=== PATIENT | female | born 1995 | race Caucasian/White ===

== ENCOUNTER → 2017-10-21 | Outpatient (CLI) | payer OTHER, BC ==
[~2017-10-21] MED LIST: ETON68IM SQ; HYDR-385 PO; MECL25TA9 PO; NORE1CAP PO
== END ==
LOC: LAB 06:54
PROVIDERS: ATTEND Nurse Practitioner Family
DX: E55.9 Vitamin D deficiency, unspecified (principal)
CPT/HCPCS: 36415; 82306

== ENCOUNTER 2018-01-04 09:33 | Outpatient (RCR) | payer OTHER, BC ==
[~2018-01-04 09:33] MED LIST changes: +METH4TAB66 PO
[2018-01-07] MEDS ORDERED: GADOBENATE 529MG/1ML 15ML VIAL IVP ONE (13:13)
--- NOTE | 2018-01-07 14:48 | RADIOLOGY IMAGING REPORT ---
FACILITY: [facility] - [place] PATIENT NAME: Pilar Bustillos : 1995 MR: [id number] V: [id number] EXAM DATE: ORDERING PHYSICIAN: ECHO IZAGUIRRE TECHNOLOGIST: Location: [facility] - [place] Patient: Pilar Bustillos : 1995 Visit/Account:[id number] Date of Sevice: 01/07/2018 Examination: MR brain without and with contrast History: Numbness in arms and legs Comparison: 08/16/2017 Technique: Multiplane MR imaging was performed through the brain without and with contrast. 11 cc IV multihance was administered. Findings: Diffusion: None Ventricles: Normal Midline shift: None Extraxial fluid: None Midline craniocervical structures: Unchanged benign pineal gland cyst measures 7 mm AP by 4 mm cranio caudad by 5 mm transverse. Parenchyma: Normal Enhancement: No pathologic enhancement Vascular flow voids: Normal Orbits and paranasal sinuses: Normal Impression: 1. 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 2. Otherwise unremarkable and normal brain MR without and with contrast. Report Dictated By: Jason Avila MD at 01/07/2018 2:37 PM Report E-Signed By: Jason Avila MD at 01/07/2018 2:44 PM WSN:[id number]
== END 2018-01-07 18:00 | disposition home or self-care (01) ==
LOC: MRI 09:33
PROVIDERS: ATTEND Specialist
DX: E34.8 Other specified endocrine disorders (principal)
CPT/HCPCS: 36415; 70553; 82607; A9577

== ENCOUNTER → 2018-02-07 | Outpatient (CLI) | payer OTHER, BC | LOC: LAB 16:09 | PROVIDERS: ATTEND Nurse Practitioner Family | DX: E83.52 Hypercalcemia (principal) | CPT/HCPCS: 36415; 82040; 82247; 82306; 82310; 82374; 82435; 82565; 82947; 84075; 84132; 84155; 84295; 84450; 84460; 84520 ==

== ENCOUNTER → 2018-05-03 | Outpatient (CLI) | payer OTHER, BC ==
[~2018-05-03] MED LIST changes: +CHOL500050 PO
[2018-05-03 15:23] LABS: PLATELET COUNT, AUTOMATED 373 K/uL (150-450)
== END ==
LOC: LAB 15:03
PROVIDERS: ATTEND Nurse Practitioner Primary Care
DX: R10.31 Right lower quadrant pain (principal)
CPT/HCPCS: 36415; 81001; 82040; 82247; 82310; 82374; 82435; 82565; 82947; 84075; 84132; 84155; 84295; 84450; 84460; 84520; 85025

== ENCOUNTER → 2018-05-10 | Outpatient (CLI) | payer OTHER, BC ==
--- NOTE | 2018-05-10 15:18 | RADIOLOGY IMAGING REPORT ---
FACILITY: [facility] PATIENT NAME: Pilar Bustillos : 1995 MR: [id number] V: [id number] EXAM DATE: ORDERING PHYSICIAN: CATRACHITO FISHER TECHNOLOGIST: Location: [facility] [place] Patient: Pilar Bustillos : 1995 Visit/Account:[id number] Date of Sevice: 05/10/2018 PELVIC HISTORY: RLQ abdominal pain / R pelvic pain / Hx ovarian cyst? TECHNIQUE: Transabdominal and transvaginal ultrasound pelvis. COMPARISON: CT on pelvis May 16, 2017 FINDINGS: Uterus: ; 7 cm length x 3.7 cm AP x 5.1 cm transverse. Myometrium: Unremarkable. Endometrium: Unremarkable; double thickness 7.3 mm. Cervix: Grossly negative. Ovaries: Right - 3.4 x 3.1 x 1.4 cm Left - 2.3 x 2.7 x 2.1 cm. There is a 1.8 cm simple left ovarian cyst Blood flow is documented in each ovary by duplex Doppler ultrasound. Adnexa: Grossly unremarkable. Free pelvic fluid: None. IMPRESSION: 1.8 cm simple left ovarian cyst Report Dictated By: Arianne Schmidt MD at 05/10/2018 3:08 PM Report E-Signed By: Arianne Schmidt MD at 05/10/2018 3:15 PM WSN:[id number]
== END ==
LOC: US 02:03
PROVIDERS: ATTEND Nurse Practitioner Primary Care
DX: N83.292 Other ovarian cyst, left side (principal)
CPT/HCPCS: 76830; 76856

== ENCOUNTER → 2018-11-11 | Outpatient (REF) ==
[2018-11-11 09:56] LABS: LDL CHOLESTEROL 97 mg/dl
== END ==
DX: Z02.89 Encounter for other administrative examinations (principal)